=== PATIENT | male | born 1945 | race Caucasian/White ===

== ENCOUNTER 2017-03-27 10:31 | Emergency (ER) | payer MEDICARE, OTHER ==
[2017-03-27] MEDS ORDERED: Sodium Chloride 0.9% 10 ML Syringe FLUSH PRN (10:40)
[2017-03-27] MEDS ORDERED: Aspirin 81 MG Tab.Chew PO ONE (10:40)
[2017-03-27] MEDS ORDERED: Morphine 2 MG/ML Syringe IVPUSH ONE (10:42)
[2017-03-27] MEDS ORDERED: Sodium Chloride 0.9% 1,000 ML IV SCH (10:45)
[2017-03-27 11:06] LABS: CHLORIDE,CL 100 mmol/L (101-111); SODIUM,NA 138 mmol/L (135-145)
--- NOTE | 2017-03-27 11:09 | EDM.PDOC ---
ED HPI GENERAL MEDICAL PROBLEM - General Chief Complaint: Chest Pain Stated Complaint: CHEST PAIN [id number] Time Seen by Provider: 03/27/17 10:39 Source of Information: Reports: Patient History Limitations: Reports: No Limitations - History of Present Illness INITIAL COMMENTS - FREE TEXT/NARRATIVE: Patient complains of sudden onset of chest pressure while pushing snow. Patient was shoveling snow for about 15 minutes when he developed sudden onset of upper chest pain and pressure that radiates in the neck and the left upper arm. Patient states that he got diaphoretic. Did not feel dizzy or have any neck pressure. Patient describes feeling gassy in his chest area and feels like he needs to belch. 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 He notes 2 stents. Last stent was placed 5 years ago. Patient walked into the emergency room Onset: Today, Sudden Duration: Minutes: Location: Reports: Chest Quality: Reports: Ache, Pressure, Same as Previous Episode Severity: Moderate Worsens with: Reports: Movement Context: Reports: Activity Associated Symptoms: Reports: Chest Pain, Diaphoresis, Shortness of Breath. Denies: Nausea/Vomiting, Syncope Treatments HUMAN RELATIONS MANAGER: Reports: Other (see below) (2 nitro) Bilateral Upper Chest Pain Score (Numeric/FACES): 7 - Related Data Allergies Allergy/AdvReac Type Severity Reaction Status Date / Time No Known Allergies Allergy Verified 03/27/17 11:01 Home Meds: Home Meds Aspirin [Halfprin] 81 mg PO DAILY 03/27/17 [History] Diltiazem HCl [Diltiazem 24Hr Cd] 180 mg PO BID 03/27/17 [History] Furosemide 40 mg PO DAILY 03/27/17 [History] Metoprolol Tartrate 25 mg PO BID 03/27/17 [History] Montelukast Sodium 1 tab PO DAILY 03/27/17 [History] Omeprazole [Omeprazole] 40 mg PO BID 03/27/17 [History] Oxybutynin 5 mg PO BID 03/27/17 [History] Sennosides/Docusate Sodium [Stool Softener-Laxative] 2 tab PO DAILY 03/27/17 [ History] atorvaSTATin [Lipitor] 20 mg PO DAILY 03/27/17 [History] ED ROS GENERAL - Review of Systems Review Of Systems: See Below Constitutional: Reports: Malaise HEENT: Reports: No Symptoms Respiratory: Reports: Shortness of Breath. Denies: Pleuritic Chest Pain, Cough Cardiovascular: Reports: Chest Pain, Blood Pressure Problem, Dyspnea on Exertion. Denies: Edema, Lightheadedness, Syncope GI/Abdominal: Reports: No Symptoms : Reports: No Symptoms Musculoskeletal: Reports: No Symptoms Neurological: Reports: No Symptoms ED EXAM, GENERAL - Physical Exam Exam: See Below Exam Limited By: No Limitations General Appearance: Alert, No Apparent Distress Nose: Normal Inspection Throat/Mouth: Normal Inspection, Normal Gums, Normal Oropharynx, Normal Voice Head: Atraumatic Neck: Normal Inspection, Supple, Non-Tender. No: Carotid Bruit, Lymphadenopathy (L), Lymphadenopathy (R) Respiratory/Chest: No Respiratory Distress, Lungs Clear, Normal Breath Sounds, No Accessory Muscle Use Cardiovascular: Normal Peripheral Pulses, Regular Rate, Rhythm, No Edema, No JVD , No Murmur Peripheral Pulses: 2+: Radial (L), Radial (R) GI/Abdominal: Soft, Non-Tender Back Exam: No: CVA Tenderness (L), CVA Tenderness (R) Extremities: Normal Inspection, Non-Tender, Normal Capillary Refill Neurological: Alert, Oriented, CN II-XII Intact Skin Exam: Warm, Diaphoretic EKG INTERPRETATION Rhythm: NSR EKG Interpretation Comments: No previous EKG for comparison. Rate of 78 with a NC interval of 0.172 Repeat EKG at 1143 shows sinus rhythm with multiple ventricular premature complexes. Repolarization abnormality suggests ischemia diffuse leads. Course - Vital Signs Last Recorded V/S: Last Vital Signs Temp 97.1 F 03/27/17 11:40 Pulse 81 03/27/17 12:36 Resp 16 03/27/17 11:40 BP 163/93 H 03/27/17 12:36 Pulse Ox 95 03/27/17 11:40 - Orders/Labs/Meds Labs: Laboratory Tests 03/27/17 03/27/17 03/27/17 Range/Units 10:40 10:40 10:40 WBC 7.0 (5.0-10.0) 10^3/uL RBC 4.87 (4.6-6.2) 10^6/uL Hgb 14.8 (14.0-18.0) g/dL Hct 45.3 (40.0-54.0) % MCV 93.0 (80-100) fL MCH 30.4 (27.0-34.0) pg MCHC 32.7 L (33.0-35.0) g/dL Plt Count 125 L (150-450) 10^3/uL Neut % (Auto) 68.5 (42.2-75.2) % Lymph % (Auto) 23.9 (20.5-50.1) % [place] % (Auto) 6.2 (2-8) % Eos % (Auto) 1.0 (1.0-3.0) % Baso % (Auto) 0.4 (0.0-1.0) % PT 9.2 (9.0-12.0) SEC INR 0.9 (0.9-1.2) APTT 23.5 (22.0-34.0) SEC D-Dimer, Quantitative 677 H (0-400) ng/mL Sodium 138 (135-145) mmol/L Potassium 3.6 (3.6-5.0) mmol/L Chloride 100 L (101-111) mmol/L Carbon Dioxide 28.0 (21.0-31.0) mmol/L Anion Gap 13.6 BUN 13 (7-18) mg/dL Creatinine 0.8 (0.6-1.3) mg/dL Est Cr Clr Drug Dosing TNP Estimated GFR (MDRD) > 60 BUN/Creatinine Ratio 16.25 Glucose 158 H (74-105) mg/dL Calcium 8.5 (8.4-10.2) mg/dl Magnesium 1.9 (1.8-2.5) mg/dL Total Bilirubin 1.4 H (0.2-1.0) mg/dL AST 26 (10-42) IU/L ALT 19 (10-60) IU/L Alkaline Phosphatase 45 (42-121) IU/L Troponin I 0.03 H* (0.00-0.02) ng/ml B-Natriuretic Peptide 44 (0-100) pg/ml Total Protein 7.1 (6.7-8.2) g/dl Albumin 3.7 (3.2-5.5) g/dl Globulin 3.4 Albumin/Globulin Ratio 1.09 //18 Range/Units 12:57 WBC (5.0-10.0) 10^3/uL RBC (4.6-6.2) 10^6/uL Hgb (14.0-18.0) g/dL Hct (40.0-54.0) % MCV (80-100) fL MCH (27.0-34.0) pg MCHC (33.0-35.0) g/dL Plt Count (150-450) 10^3/uL Neut % (Auto) (42.2-75.2) % Lymph % (Auto) (20.5-50.1) % [place] % (Auto) (2-8) % Eos % (Auto) (1.0-3.0) % Baso % (Auto) (0.0-1.0) % PT (9.0-12.0) SEC INR (0.9-1.2) APTT (22.0-34.0) SEC D-Dimer, Quantitative (0-400) ng/mL Sodium (135-145) mmol/L Potassium (3.6-5.0) mmol/L Chloride (101-111) mmol/L Carbon Dioxide (21.0-31.0) mmol/L Anion Gap BUN (7-18) mg/dL Creatinine (0.6-1.3) mg/dL Est Cr Clr Drug Dosing Estimated GFR (MDRD) BUN/Creatinine Ratio Glucose (74-105) mg/dL Calcium (8.4-10.2) mg/dl Magnesium (1.8-2.5) mg/dL Total Bilirubin (0.2-1.0) mg/dL AST (10-42) IU/L ALT (10-60) IU/L Alkaline Phosphatase (42-121) IU/L Troponin I 0.05 H* (0.00-0.02) ng/ml B-Natriuretic Peptide (0-100) pg/ml Total Protein (6.7-8.2) g/dl Albumin (3.2-5.5) g/dl Globulin Albumin/Globulin Ratio Meds: Medications Discontinued Medications Generic Name Dose Route Start Last Admin Trade Name Freq PRN Reason Stop Dose Admin Aspirin 324 mg 03/27/17 10:40 03/27/17 10:55 Aspirin PO 03/27/17 10:41 324 mg ONETIME ONE Administration Heparin Sodium (Porcine) Confirm 03/27/17 11:57 03/27/17 13:08 Heparin Sodium Administered 03/27/17 11:58 Not Given Dose 5,000 units .ROUTE .STK-MED ONE Heparin Sodium (Porcine) 5,000 units 03/27/17 11:57 03/27/17 12:00 Heparin Sodium IVPUSH 03/27/17 11:58 5,000 units ONETIME ONE Administration Sodium Chloride 1,000 mls @ 125 mls/hr 03/27/17 10:45 03/27/17 10:56 Normal Saline IV 125 mls/hr ASDIRECTED VALERI Administration Nitroglycerin/Dextrose 25 mg in 250 mls @ 3 mls/hr 03/27/17 11:30 03/27/17 11 :39 Nitroglycerin 25 Mg/D5w 250 Ml IV 10 mcg/min TITRATE VALERI 6 mls/hr Protocol Administration 5 MCG/MIN Nitroglycerin/Dextrose Confirm 03/27/17 11:30 03/27/17 12:00 Nitroglycerin 25 Mg/D5w 250 Ml Administered 03/27/17 11:31 Not Given Dose 25 mg in 250 mls @ as directed .ROUTE .STK-MED ONE Heparin Sodium/Dextrose 25,000 units in 500 mls @ 39.871 mls/hr 03/27/17 12: 00 Heparin 25,000 Units In D5w 500 Ml IV TITRATE [facility] Protocol 15 UNITS/KG/HR Heparin Sodium/Dextrose 25,000 units in 500 mls @ 39.871 mls/hr 03/27/17 12: 00 03/27/17 12:00 Heparin 25,000 Units In D5w 500 Ml IV 15 units/kg/hr TITRATE VALERI 39.871 mls/hr Protocol Administration 15 UNITS/KG/HR Metoprolol Tartrate 5 mg 03/27/17 12:31 03/27/17 12:36 Lopressor IVPUSH 03/27/17 12:32 5 mg ONETIME ONE Administration Metoprolol Tartrate Confirm 03/27/17 12:32 03/27/17 12:36 Lopressor Administered 03/27/17 12:33 Not Given Dose 5 mg .ROUTE .STK-MED ONE Morphine Sulfate 2 mg 03/27/17 10:42 03/27/17 10:55 Morphine IVPUSH 03/27/17 10:43 2 mg ONETIME ONE Administration Morphine Sulfate 4 mg 03/27/17 11:15 03/27/17 11:27 Morphine IVPUSH 03/27/17 11:16 4 mg ONETIME ONE Administration Nitroglycerin 1 gm 03/27/17 11:46 03/27/17 11:59 Nitro-Bid 2% TOP 03/27/17 11:47 1 gm ONETIME ONE Administration Sodium Chloride 10 ml 03/27/17 10:40 03/27/17 10:56 Saline Flush FLUSH 10 ml ASDIRECTED PRN Administration Keep Vein Open - Re-Assessments/Exams Free Text/Narrative Re-Assessment/Exam: Patient continues to have chest pain after receiving sublingual nitroglycerin, morphine, Nitropaste and heparin. Nitropaste is discontinued and he is started on a nitro drip. He will receive 5 mg metoprolol IV. A repeat troponin is pending. Consultation has occurred and patient is being transferred to [place] for higher level of care. Patient's specialized cardiac care has always been through [place]. He does not see specialists in [place]. Patient has an acute coronary syndrome and needs prompt transfer to facility/high level of care for cardiac monitoring and interventional services if indicated 03/27/17 12:42 03/27/17 13:09 Departure - Departure Time of Disposition: 13:07 Disposition: DC/Tfer to Acute Hospital 02 Reason for Transfer *Q: Primary PCI Indicated Condition: Fair Clinical Impression: Acute coronary syndrome Referrals: Haresh Weaver MD [Primary Care Provider] - Forms: ED Department Discharge Additional Instructions: Documents are completed. Transfer Hospital contacted. EKGs are faxed. Labs and medications are reviewed.
--- NOTE | 2017-03-27 11:14 | CR ---
Clinical history: 71-year-old male with chest pain. Interpretation: Poor inspiratory effort. *No new cardiopulmonary abnormality identified in the interval since compari son film, 22 March 2011. Normal cardiac silhouette without cephalization of vascular flow, signs of alveolar edema or dependen t pleural fluid accumulation (external cardiac cath lab radiology technologist leads) Calcifications arch of the aorta. No new lung mass, hilar lymphadenopathy or focal lobar pneumonia. No atelectasis/collapse. No pneumothorax. Mild kyphoscoliosis osteopenic spine. No fracture or dislocation. CONCLUSION: No acute cardiopulmonary abnormality.
[2017-03-27] MEDS ORDERED: Morphine 4 MG/ML Syringe IVPUSH ONE (11:15)
[2017-03-27] MEDS ORDERED: Nitroglycerin/D5W 25 MG/250 ML BOTTLE IV SCH (11:30)
[2017-03-27] MEDS ORDERED: Nitroglycerin/D5W 25 MG/250 ML BOTTLE ONE (11:30)
[2017-03-27] MEDS ORDERED: Nitroglycerin 2% Oint 1 GM UD Packet TOP ONE (11:46)
[2017-03-27] MEDS ORDERED: Heparin Sodium 5,000 Units/ML Vial IVPUSH ONE (11:57)
[2017-03-27] MEDS ORDERED: Heparin Sodium 5,000 Units/ML Vial ONE (11:57)
[2017-03-27] MEDS ORDERED: Heparin Sodium/D5W 25,000 UNITS/500 ML BAG IV SCH ×2 (12:00)
[2017-03-27] MEDS ORDERED: Metoprolol Tartrate 5 MG/5 ML SDV IVPUSH ONE (12:31)
[2017-03-27] MEDS ORDERED: Metoprolol Tartrate 5 MG/5 ML SDV ONE (12:32)
== END 2017-03-27 13:30 ==
LOC: DL.ED 10:31
DX: I24.9 Acute ischemic heart disease, unspecified (principal); Z79.82 Long term (current) use of aspirin; Z79.899 Other long term (current) drug therapy
CPT/HCPCS: 36415; 71046; 80053; 83735; 83880; 84484; 85025; 85379; 85610; 85730; 93005; 93010; 94762; 96361; 96365; 96366; 96368; 96375; 99285; A9270; J1644; J2270; J7030; J7050; J3490

== ENCOUNTER 2022-09-27 08:38 | Emergency (ER) | payer MEDICARE, OTHER ==
[2022-09-27] MEDS ORDERED: Sodium Chloride 0.9% 10 ML Syringe FLUSH PRN (08:50)
[2022-09-27] MEDS ORDERED: Dexamethasone 4 MG/ML SDV IVPUSH ONE (08:51)
[2022-09-27 08:57] LABS: BASOPHILS PERCENT AUTO 0.1 % (0.0-1.0); EOSINOPHILS PERCENT AUTO 0.1 % (1.0-3.0); LYMPHOCYTES PERCENT AUTO 7.5 % (20.5-50.1); MEAN CORPUSCULAR HEMOGLOBIN 30.1 pg (27.0-34.0); MEAN CORPUSCULAR HGB CONC 32.6 g/dL (33.0-35.0); MEAN CORPUSCULAR VOLUME 92.4 fL (80-100); MONOCYTES PERCENT AUTO 8.2 % (2-8); NEUTROPHILS PERCENT AUTO 84.1 % (42.2-75.2); PLATELET COUNT,PLT 166 10^3/uL (150-450); RED BLOOD CELL COUNT 4.98 10^6/uL (4.6-6.2); WHITE BLOOD CELL COUNT,WBC 13.6 10^3/uL (5.0-10.0)
[2022-09-27 09:08] LABS: ANION GAP 12.8 mEq/L (7-13); CALCIUM 9.4 mg/dL (8.5-10.1); CREATININE 0.92 mg/dL (0.70-1.30); EST CRCL DRUG DOSING (CG) 55.41 mL/min; POTASSIUM,K 3.8 mmol/L (3.5-5.1)
[2022-09-27] MEDS ORDERED: Iopamidol 612 MG/ML 100 ML Bottle IVPUSH ONE (10:00)
[2022-09-27] MEDS ORDERED: cefTRIAXone 1 GM Vial IVPUSH ONE (10:34)
== END 2022-09-27 12:38 | disposition home or self-care (01) ==
LOC: DL.ED 08:38
DX: K11.20 Sialoadenitis, unspecified (principal); I25.119 Atherosclerotic heart disease of native coronary artery with unspecified angina pectoris; I10 Essential (primary) hypertension; I25.2 Old myocardial infarction; E78.00 Pure hypercholesterolemia, unspecified; K21.9 Gastro-esophageal reflux disease without esophagitis; E11.9 Type 2 diabetes mellitus without complications; E66.9 Obesity, unspecified; Z79.899 Other long term (current) drug therapy; Z79.82 Long term (current) use of aspirin; Z79.02 Long term (current) use of antithrombotics/antiplatelets; Z79.84 Long term (current) use of oral hypoglycemic drugs; Z88.8 Allergy status to other drugs, medicaments and biological substances; Z91.048 Other nonmedicinal substance allergy status; Z91.018 Allergy to other foods
CPT/HCPCS: 36415; 70491; 80048; 85025; 87081; 87430; 96365; 96366; 96375; 99284; J0696; J1100; J3370; J7050; Q9967; J3490

== ENCOUNTER 2022-10-05 18:06 | Emergency (ER) | payer MEDICARE, OTHER | END 2022-10-05 20:58 | disposition home or self-care (01) | LOC: DL.ED 18:06 | DX: S30.1XXA Contusion of abdominal wall, initial encounter (principal); I10 Essential (primary) hypertension; I25.119 Atherosclerotic heart disease of native coronary artery with unspecified angina pectoris; I25.2 Old myocardial infarction; E78.00 Pure hypercholesterolemia, unspecified; K21.9 Gastro-esophageal reflux disease without esophagitis; E11.9 Type 2 diabetes mellitus without complications; E66.9 Obesity, unspecified; Z68.41 Body mass index [BMI] 40.0-44.9, adult; Z88.8 Allergy status to other drugs, medicaments and biological substances; Z91.048 Other nonmedicinal substance allergy status; Z91.018 Allergy to other foods; Z79.82 Long term (current) use of aspirin; Z79.899 Other long term (current) drug therapy; W01.0XXA Fall on same level from slipping, tripping and stumbling without subsequent striking against object, initial encounter; Y93.01 Activity, walking, marching and hiking; Y92.89 Other specified places as the place of occurrence of the external cause | CPT/HCPCS: 74022; 82947; 99283; 99284 ==